=== PATIENT | male | born 1970 | race Asian ===

== ENCOUNTER 2017-04-12 11:52 | Emergency (ER) | payer OTHER ==
[~2017-04-12] VITALS: Ht 180.3 cm; Wt 68.0 kg
[2017-04-12 12:22] VITALS: BP 98/41
[2017-04-12 13:58] LABS: BASOPHIL % 0.5 % (0-2); PLATELET COUNT 327 x10^3mcL (130-400)
[2017-04-13 04:53] LABS: RAPID PLASMA REAGIN Non Reactive (Non Reactive)
== END 2017-04-12 12:22 | disposition home or self-care (01) ==
LOC: ED 11:52
PROVIDERS: Emergency Medicine Emergency Medical Services
DX: B08.4 Enteroviral vesicular stomatitis with exanthem (principal); I10 Essential (primary) hypertension; Z79.899 Other long term (current) drug therapy
CPT/HCPCS: 36415